=== PATIENT | male | born 1970 | race Caucasian/White ===

== ENCOUNTER 2020-08-05 10:32 | Outpatient (CLI) | payer BC ==
[2020-08-05 12:13] LABS: Hemoglobin 15.4 g/dL (13.5-17.5); Mean Corpuscular HGB CONC 34.2 g/dL (32.0-36.0); Mean Corpuscular Hemoglobin 31.5 pg (27.0-33.0); Mean Platelet Volume 9.9 fl (7.4-10.4); Platelet Count 225 10x3/uL (150-450); RBC Distribution Width 13.2 % (11.5-14.5); Red Blood Cell (RBC) Count 4.89 10x6/uL (4.32-5.72); White Blood Cell (WBC) Count 6.5 10x3/uL (3.5-10.5)
[2020-08-05 12:31] LABS: Anion Gap 13 mmol/L (10-20); BUN (Urea Nitrogen) 16 mg/dL (8.9-20.6); Calc. Creatinine Clearance 0 mL/min (70-130); Calcium 9.4 mg/dL (7.8-10.44); Carbon Dioxide 28 mmol/L (22-29); Chloride 104 mmol/L (98-107); Glucose 66 mg/dL (70-105); Sodium 141 mmol/L (136-145)
[2020-08-05 12:36] LABS: PTT 29.3 sec (22.0-33.0); Prothrombin Time 10.8 sec (9.5-12.1)
[2020-08-05 18:22] LABS: SARS-CoV-2 PCR by NAA Not Detected (NotDetected)
== END 2020-08-05 10:33 | disposition home or self-care (01) ==
LOC: LABBT 10:32
PROVIDERS: ATTEND Surgery
DX: Z01.818 Encounter for other preprocedural examination (principal); M51.16 Intervertebral disc disorders with radiculopathy, lumbar region; Z20.822 Contact with and (suspected) exposure to COVID-19
CPT/HCPCS: 80048; 85027; 85610; 85730; 87635; 93005; 93010; U0003; U0005

== ENCOUNTER 2020-08-09 06:01 | Day surgery (SDC) | payer BC ==
[2020-08-05 11:20] VITALS: BMI 26.6
[2020-08-09] MEDS ORDERED: Thrombin 5000 UNITS/5 ML VIAL ONE (06:38)
[2020-08-09] MEDS ORDERED: Midazolam HCl 2 mg/2 ml Vial ONE (07:23)
[2020-08-09] MEDS ORDERED: Rocuronium Bromide 10 MG/ML (10ML VIAL) ONE (07:38)
[2020-08-09] MEDS ORDERED: ePHEDrine 50 MG/ML VIAL ONE (07:38)
[2020-08-09] MEDS ORDERED: Lidocaine 1% PF 5 ML VIAL ONE (07:38)
[2020-08-09] MEDS ORDERED: PROPOFOL 200 MG/20 ML VIAL ONE (07:38)
[2020-08-09] MEDS ORDERED: Dexamethasone 20 MG/5 ML VIAL ONE (07:38)
[2020-08-09] MEDS ORDERED: Ondansetron PF 4 MG/2 ML Vial ONE (07:38)
[2020-08-09] MEDS ORDERED: SUGAMMADEX SODIUM 200 MG/2 ML VIAL ONE (09:15)
[2020-08-09] MEDS ORDERED: Fentanyl 100 MCG/2 ML VIAL ONE ×2 (09:26→09:50)
[2020-08-09] MEDS ORDERED: Acetaminophen/Codeine 30-300mg Tablet PO PRN (09:41)
[2020-08-09] MEDS ORDERED: traMADol HCl 50 MG TAB PO PRN (09:41)
[2020-08-09] MEDS ORDERED: Acetaminophen 325 MG TAB PO PRN (09:41)
[2020-08-09] MEDS ORDERED: tiZANidine HCl 4 MG TAB PO PRN (09:41)
[2020-08-09] MEDS ORDERED: HYDROmorphone 2 MG/ML VIAL ONE (10:36)
[2020-08-09] MEDS ORDERED: Promethazine HCl 25 MG/ML VIAL ONE (12:25)
[2020-08-09] MEDS: Sodium Chloride 0.9% 1,000 ML IV SCH (17:22)
[2020-08-09] MEDS: CEFAZOLIN 2 GM in Premix Bag 1 BAG IVPB SCH (17:22)
[2020-08-09] MEDS: Morphine 2 MG/ML VIAL SLOW IVP PRN ×2 (19:22→21:24)
[2020-08-10] MEDS: Sodium Chloride 0.9% 1,000 ML IV SCH ×2 (00:08→04:55)
[2020-08-10] MEDS: Morphine 2 MG/ML VIAL SLOW IVP PRN ×2 (04:19→11:53)
[2020-08-10] MEDS: HYDROcodone/Acetaminophen 7.5/325 mg Tablet PO PRN ×2 (04:29→10:23)
[2020-08-10] MEDS ORDERED: FLU VACC QS2020-21(6MOS UP)/PF 60 MCG/0.5 ML SYRINGE IM ONE (09:00)
[2020-08-10] MEDS ORDERED: Lisinopril 20 MG TAB PO SCH (09:00)
[2020-08-10 11:38] VITALS: BP 125/75; TEMP 98.3
== END 2020-08-10 12:45 | disposition home or self-care (01) ==
LOC: SDC 06:01 → T4-A 09:41 → SDC 08-10 12:45
PROVIDERS: ATTEND Surgery
PROC: 0ST20ZZ Resection of Lumbar Vertebral Disc, Open Approach (ICD-10-PCS; principal; 2020-08-09)
DX: M51.17 Intervertebral disc disorders with radiculopathy, lumbosacral region (principal); I10 Essential (primary) hypertension; Z79.899 Other long term (current) drug therapy
CPT/HCPCS: 76000; J0690; J1100; J1170; J2250; J2270; J2405; J2550; J2704; J3010; J3370; J3490